=== PATIENT | female | born 1960 | race Two or more races ===

== ENCOUNTER 2019-06-14 07:26 | Emergency (ER) | payer OTHER ==
[~2019-06-14] VITALS: Ht 170.2 cm; Wt 86.2 kg
[2019-06-14] MEDS ORDERED: FORTAMET1000 MG PO (07:39)
[2019-06-14] MEDS ORDERED: VASOTEC2.5 MG PO (07:40)
[2019-06-14] MEDS ORDERED: GLIMEPIRIDE2 M1 PO (07:40)
[2019-06-14] MEDS ORDERED: B COMPLEX1 EACH PO (07:40)
== END 2019-06-14 15:16 | disposition home or self-care (01) ==
LOC: ER 07:26
DX: L03.115 Cellulitis of right lower limb (principal)

== ENCOUNTER 2020-12-20 07:06 | Inpatient (IN) | payer OTHER ==
[~2020-12-20] VITALS: Ht 170.2 cm; Wt 90.7 kg
[~2020-12-20 07:06] MED LIST: B COMPLEX1 EACH PO; FORTAMET1000 MG PO; GLIMEPIRIDE2 M1 PO; VASOTEC2.5 MG PO
== END 2020-12-22 10:58 | disposition designated cancer center or children's hospital (05) | DRG 282 ==
LOC: ER 07:06 → MEDI 15:53
PROVIDERS: ADMIT Internal Medicine; ATTEND Internal Medicine
PROC: 4A12X4Z Monitoring of Cardiac Electrical Activity, External Approach (ICD-10-PCS; principal; 2020-12-20)
PROC: 3E0F7SF Introduction of Other Gas into Respiratory Tract, Via Natural or Artificial Opening (ICD-10-PCS; 2020-12-20)
PROC: B246ZZZ Ultrasonography of Right and Left Heart (ICD-10-PCS; 2020-12-20)
DX: I21.4 Non-ST elevation (NSTEMI) myocardial infarction (principal); I10 Essential (primary) hypertension; E11.9 Type 2 diabetes mellitus without complications; Z79.4 Long term (current) use of insulin; Z20.822 Contact with and (suspected) exposure to COVID-19

== ENCOUNTER → 2023-06-03 | Emergency (ER) | payer OTHER ==
[~2023-06-03] VITALS: Ht 170.2 cm; Wt 86.2 kg
== END | disposition left against medical advice (07) ==
LOC: ER 06:35
DX: Z53.21 Procedure and treatment not carried out due to patient leaving prior to being seen by health care provider (principal)

== ENCOUNTER 2024-10-08 12:51 | Emergency (ER) | payer OTHER ==
[~2024-10-08] VITALS: Ht 170.2 cm; Wt 86.2 kg
[2024-10-08] MEDS ORDERED: ATORVASTATIN CA40 MG PO (13:21)
[2024-10-08] MEDS ORDERED: METOPROLOL TART25 MG PO (13:22)
[2024-10-08] MEDS ORDERED: NEURONTIN300 MG PO (13:23)
[2024-10-08] MEDS ORDERED: BARIUM SULFATE 450 ML ORAL.SUSP PO ONE (13:57)
[2024-10-08 14:39] LABS: HEMATOCRIT 38.5 % (36.0-45.00); HEMOGLOBIN 13.2 g/dL (12.0-15.00); MEAN CELL VOLUME 84.7 fL (80.00-100.00); MEAN CORPUSCULAR HGB CONC 34.2 g/dl (32.0-36.0); PLATELET COUNT 181 K/uL (150-450); RED BLOOD COUNT 4.55 M/uL (4.00-6.00)
[2024-10-08 14:44] LABS: PH,URINE 5.5 (5.0-8.0); URINE APPEARANCE Clear; URINE BILIRRUBIN Negative (NEGATIVE); URINE BLOOD Negative; URINE COLOR Yellow; URINE KETONE Trace (NEGATIVE); URINE LEUKOCYTE Small; URINE NITRATE Negative; URINE PROTEIN Negative (NEGATIVE)
[2024-10-08 14:47] LABS: URINE BACTERIA 187.2 uL (0.0-1933); URINE EPITHELIAL CELLS 17.5 uL (0.0-38.8); URINE RBC 3.9 uL (0.0-20.8); URINE WBC 46.9 uL (0.0-23.2)
[2024-10-08 14:53] LABS: CALCIUM 9.3 mg/dL (8.5-10.1); CREATININE SERUM 0.59 mg/dL (0.55-1.02); GFR 101.98; POTASSIUM 3.82 mEq/L (3.5-5.1)
[2024-10-08 15:36] LABS: URINE CAST 0.44 uL (0.0-1.40); URINE GLUCOSE >=1000 MG/DL (NEGATIVE)
[2024-10-08] MEDS ORDERED: FAMOTIDINE/PF 20 MG in 0.9 % SODIUM CHLORIDE 8 ML IV PUSH STA (16:51)
[2024-10-08] MEDS ORDERED: KETOROLAC TROMETHAMINE 30 MG VIAL IV ONE (17:00)
[2024-10-08] MEDS ORDERED: KETOROLAC TROMETHAMINE 30 MG VIAL ONE (17:12)
[2024-10-08] MEDS ORDERED: FAMOTIDINE/PF 20 MG/2 ML VIAL ONE (17:12)
[2024-10-08] MEDS ORDERED: METRONIDAZOLE500 MG PO (18:06)
[2024-10-08] MEDS ORDERED: INTESTINEX680 M1 PO (18:06)
[2024-10-08] MEDS ORDERED: OMEPRAZOLE40 MG PO (18:06)
[2024-10-08] MEDS ORDERED: LEVSIN/SL0.125 MG SL (18:06)
[2024-10-08] MEDS ORDERED: CIPRO500 MG PO (18:06)
== END 2024-10-08 18:14 | disposition home or self-care (01) ==
LOC: ER 12:51
PROVIDERS: Emergency Medicine
DX: K57.32 Diverticulitis of large intestine without perforation or abscess without bleeding (principal); E11.9 Type 2 diabetes mellitus without complications; Z79.4 Long term (current) use of insulin; I10 Essential (primary) hypertension

== ENCOUNTER 2025-05-29 08:43 | Emergency (ER) | payer OTHER ==
[~2025-05-29] VITALS: Ht 170.2 cm; Wt 86.2 kg
[~2025-05-29 08:43] MED LIST changes: +ATORVASTATIN CA40 MG PO; +CIPRO500 MG PO; +INTESTINEX680 M1 PO; +LEVSIN/SL0.125 MG SL; +METOPROLOL TART25 MG PO; +METRONIDAZOLE500 MG PO; +NEURONTIN300 MG PO; +OMEPRAZOLE40 MG PO
[2025-05-29] MEDS ORDERED: JANUMET 50-1,01 EACH PO (09:26)
[2025-05-29] MEDS ORDERED: ESOMEPRAZOLE SO40 MG (09:27)
[2025-05-29] MEDS ORDERED: FARXIGA10 MG PO (09:27)
[2025-05-29] MEDS ORDERED: GLIMEPIRIDE4 MG (09:28)
[2025-05-29] MEDS ORDERED: SODIUM CHLORIDE 0.45 % 1,000 ML IV STA (10:14)
[2025-05-29] MEDS ORDERED: MECLIZINE HCL 12.5 MG TABLET PO STA (10:15)
[2025-05-29] MEDS ORDERED: MECLIZINE HCL 12.5 MG TABLET PO ONE (10:16)
[2025-05-29 10:48] LABS: BASO % 0.4 % (0.1-1.2); EOS # 0.25 (0.04-0.54); EOS % 4.4 % (0.7-7.0); LYMPH # 1.55 (1.18-3.74); LYMPH % 27.1 % (19.3-53.1); MEAN PLATELET VOLUME 11.30 fl (9.4-12.4); MONO # 0.43 (0.24-0.82); MONO % 7.5 % (4.7-12.5); NEUT # 3.45 (1.56-6.13); NEUT % 60.4 % (34.0-71.1); RED CELL DISTRIBUTION WIDTH 12.7 % (11.6-14.4)
[2025-05-29 11:11] LABS: INR 1.09
[2025-05-29 11:16] LABS: ALT/SGPT 38.0 U/L (12-78); AST/SGOT 21.0 U/L (15-37); BILIRUBIN TOTAL 0.88 mg/dL (0.3-1.2); BUN CREA RATIO 40.0 (7.0-25.0); CREATININE SERUM 0.47 mg/dL (0.55-1.02); GFR 132.58; GLOBULINA 3.3 G/DL (2.4-3.5); GLUCOSE FASTING 119.0 mg/dL (65-100); OSMOLALITY SERUM 287.0 MOSM/KG (275-295); PHOSPHOKINASE CREATININE 264.0 U/L (26-192)
[2025-05-29 12:22] LABS: URINE APPEARANCE Clear; URINE BILIRRUBIN Negative (NEGATIVE); URINE BLOOD Trace; URINE COLOR Yellow; URINE KETONE Negative (NEGATIVE); URINE LEUKOCYTE Moderate; URINE NITRATE Negative; URINE PROTEIN Negative (NEGATIVE); URINE UROBILINOGEN 0.2 E.U./dl
[2025-05-29 12:26] LABS: URINE BACTERIA 232.1 uL (0.0-1933); URINE EPITHELIAL CELLS 21.4 uL (0.0-38.8); URINE RBC 4.1 uL (0.0-20.8); URINE WBC 116.0 uL (0.0-23.2)
[2025-05-29 12:32] LABS: URINE CAST 0.14 uL (0.0-1.40); URINE GLUCOSE >=1000 MG/DL (NEGATIVE)
== END 2025-05-29 13:12 | disposition home or self-care (01) ==
LOC: ER 08:43
PROVIDERS: General Practice
DX: R42 Dizziness and giddiness (principal); I10 Essential (primary) hypertension; E11.9 Type 2 diabetes mellitus without complications; Z79.84 Long term (current) use of oral hypoglycemic drugs
CPT/HCPCS: 36415; 70450; 93005; 99284; Q9965